=== PATIENT | male | born 1965 | race Caucasian/White ===

== ENCOUNTER 2024-05-02 09:33 | Outpatient (REF) | payer OTHER, SELFPAY ==
--- NOTE | ~2024-05-02 | XR_ITS ---
EXAMINATION: XR HAND, LEFT CLINICAL INFORMATION: Left hand pain COMPARISON: None available. TECHNIQUE: PA, lateral, and oblique views of the left hand. FINDINGS: The bones and soft tissues are normal. No fracture. Alignment is anatomic. Joint spaces are maintained. No erosions or soft tissue calcifications. XR/XR hand LT min 3V IMPRESSION: Normal left hand.
== END 2024-05-02 09:34 | disposition home or self-care (01) ==
LOC: HO.HOSX 09:33
PROVIDERS: Visit Provider Orthopaedic Surgery
DX: M67.442 Ganglion, left hand (principal)
CPT/HCPCS: 20612; 73130

== ENCOUNTER 2024-05-02 10:52 | Outpatient (AMB) | payer OTHER, SELFPAY ==
--- NOTE | 2024-05-02 11:10 | MHC.OFFVIS ---
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 Patient reports he noticed a solid mass about a year ago which he thought was a bone chip at the base of his middle finger. He expresses stabbing pain when the site is palpitated other travis he generally does not have pain. He says knows he has to hold objects a certain way to avoid pain but states when he forgets to do this and grabs objects without caution he has stabbing pain that he feels from the inside out. He states driving and carrying things are starting to gradually increase the pain more everyday. Denies recent injury to left hand, numbness and tingling. He would like to discuss surgery to remove mass today. 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 He reports having a hard mass at the volar base of his middle finger for ~1 year now. He says this is painful only when pressure is applied to it, such as when grabbing a steering wheel or other objects. Otherwise he denies any pain normally or when at rest. He denies any kind of injury or penetrating wound. He denies any injuries, numbness, or tingling. [facility], [facility] Social History (Updated 05/02/24 @ 11:14 by MELANIE Hernandez) Alcohol intake: current Patient Tobacco Use Status: Never used Tobacco Current occupational status: employed Current occupation: right hand dominant, [employer] IT work Review of Systems Const All systems reviewed & are unremarkable except as noted in HPI and below Physical Exam Vital Signs: BMI result Body Mass Index 25.1 Const General: cooperative, healthy appearing and no acute distress Orientation/consciousness: patient oriented x3 HEENT Head: Yes normocephalic and Yes atraumatic Eyes EOM: EOMs intact bilaterally Resp Effort & Inspection: normal respiratory effort and able to speak in complete sentences Cardio Jugular venous distension: no JVD Skin General skin exam: turgor normal Rashes: no rashes Neuro General: patient oriented x3 Extrem Other: Evaluation of Left Upper Extremity: The patient is alert, oriented, and in no acute distress Neuro: Median, Ulnar, Radial nerves motor and sensory intact and sensation is normal to the tips of all digits Vascular: Cap refill brisk ROM: He can make a fist and extend all his digits No locking or catching Skin: No lacerations or abrasions. General: No Ecchymosis. No Erythema or evidence of infection. There is a mass at the base of his middle finger, just distal to the palmar digital crease, in line with the flexor tendon.. This measures ~6-7mm in diameter. This was spherical in shape & mildly ttp. Radiographs: 3 views of the left hand were taken and viewed by me today in clinic. They show no fractures, dislocations, or radio-opaque masses Psych Appearance: grossly normal Affect: normal affect Attitude: cooperative Office Procedures Fracture Care Details: No fracture, aspiration Fracture Billing Code: Fracture Billing Code Assessment & Plan Assessment & Plan (1) Ganglion cyst of finger of left hand: Code(s): M67.442 - Ganglion, left hand Category: Medical Plan Assessment & Plan: 1. Left middle finger volar retinacular cyst At the base of the middle finger I educated him about this condition I discussed operative and non-operative treatment options The patient would like to proceed with an aspiration today Aspiration #1: The risks and benefits of aspiration, including but not limited to risk of damage to blood vessels, nerves, tendons, infection, failure to improve symptoms, increased pain, and possible need for further aspirations or surgical intervention. After obtaining consent, I sterilely prepped the area over the base of the middle finger. I then injected subcutaneously with a small amount 1% lidocaine. I then passed a 27 gauge needle into the ganglion, ruptured, & aspirated some clear viscous fluid consistent with a ganglion. Some remaining viscous fluid was then pushed out of the ganglion. The mass was no longer palpable to either me or the patient. The patient tolerated this well and with no complications & good resolution of his symptoms. He is happy that this was taken care of today. Scribed for Loly John MD by Suresh Fuentes, medical record administrator, on 05/02/24 at 11:55 AM, EST. Orders: Orders XR hand LT min 3V Today M79.642 - Pain in left hand Coding Level of Care Code New Pt Level 3 (65041) Diagnoses Ganglion cyst of finger of left hand M67.442 CPT Codes Fracture Care - Fracture Billing Code: Fracture Billing Code ([id number])
[2024-05-02 11:12] VITALS: BMI 25.1
== END 2024-05-02 12:34 | disposition home or self-care (01) ==
PROVIDERS: PCP Physician Assistant; Visit Provider Orthopaedic Surgery
DX: M67.442 Ganglion, left hand (principal)
CPT/HCPCS: 20612; 99203